=== PATIENT | female | born 1990 | race Hispanic/Latino ===

== ENCOUNTER 2017-05-24 08:49 | Emergency (ER) | payer MEDICAID, OTHER ==
[2017-05-24] MEDS ORDERED: LIDOCAINE HCL 1% 20 ML VIAL ONE (09:26)
[2017-05-24] MEDS ORDERED: TETANUS/DIPHTHERIA TOXOID [ADULT] 0.5 ML VIAL IM ONE (09:27)
[2017-05-24] MEDS ORDERED: CEPHALEXIN 500 MG CAPSULE ONE (09:29)
== END 2017-05-24 10:19 | disposition home or self-care (01) ==
LOC: EDH 08:49
DX: S61.412A Laceration without foreign body of left hand, initial encounter (principal); Z72.0 Tobacco use; W22.8XXA Striking against or struck by other objects, initial encounter; Y93.89 Activity, other specified; Y92.89 Other specified places as the place of occurrence of the external cause; Y99.8 Other external cause status
CPT/HCPCS: 12032; 73120; 90471; 90714

== ENCOUNTER 2019-07-16 01:43 | Emergency (ER) | payer OTHER ==
[2019-07-16] MEDS ORDERED: ACETAMINOPHEN EXTRA STRENGTH 500 MG TABLET ONE (01:53)
[2019-07-16] MEDS ORDERED: ONDANSETRON ODT 4 MG TAB ONE (02:10)
[2019-07-16] MEDS ORDERED: IBUPROFEN 200 MG TAB ONE (03:36)
[2019-07-16] MEDS ORDERED: IBUPROFEN 400 MG TABLET ONE (03:36)
== END 2019-07-16 03:42 | disposition home or self-care (01) ==
LOC: EDH 01:43
DX: J11.1 Influenza due to unidentified influenza virus with other respiratory manifestations (principal); R11.2 Nausea with vomiting, unspecified
CPT/HCPCS: 87804; 87880

== ENCOUNTER 2019-11-03 15:28 | Emergency (ER) | payer OTHER ==
[2019-11-03 16:21] LABS: HCG,QUAL RESULT NEGATIVE (NEGATIVE)
[2019-11-03 16:22] LABS: APPEARANCE,URINE Clear (CLEAR); BILIRUBIN,URINE Negative (NEGATIVE); COLOR,URINE Yellow (YELLOW); GLUCOSE, URINE (UA) Negative (NEGATIVE); KETONES,URINE Negative (NEGATIVE); LEUKOCYTE ESTERASE ,URINE Small (NEGATIVE); NITRATE,URINE Negative (NEGATIVE); OCCULT BLOOD,URINE Negative (NEGATIVE); PROTEIN,URINE Negative (NEGATIVE); UROBILINOGEN,URINE 0.2 mg/dL (0.2-1.0)
[2019-11-03 16:41] LABS: BACTERIA,URINE Few /HPF (None Seen); SQUAMOUS EPITHELIAL CELL,UR Few /HPF (0-2)
[2019-11-03 16:45] LABS: BASOPHILS % (AUTO) 0.4 % (0.0-5.0); EOSINOPHILS % (AUTO) 0.8 % (0.0-8.0); HEMATOCRIT 40.4 % (36-48); LYMPHOCYTES % (AUTO) 23.5 % (21.0-51.0); MEAN CORPUSCULAR HEMOGLOBIN 31.1 pg (27.0-33.0); MEAN CORPUSCULAR HGB CONC 33.7 g/dL (32.0-36.0); MEAN CORPUSCULAR VOLUME 92.4 fL (79-99); MONOCYTES % (AUTO) 4.3 % (3.0-13.0); NEUTROPHILS % (AUTO) 70.8 % (40.0-77.0); PLATELET COUNT (AUTO) 287 K/uL (130-400); RED BLOOD CELL COUNT(AUTO) 4.37 MIL/uL (4.00-5.50); RED CELL DISTRIBUTION WIDTH 13.8 % (11.0-15.5); WHITE BLOOD COUNT (AUTO) 8.3 K/uL (4.8-10.8)
[2019-11-03 16:48] LABS: CREATININE 0.9 mg/dL (0.5-1.5); POTASSIUM 3.7 mmol/L (3.5-5.1)
== END 2019-11-03 17:22 | disposition home or self-care (01) ==
LOC: EDH 15:28
DX: R42 Dizziness and giddiness (principal); R11.0 Nausea; Z72.0 Tobacco use
CPT/HCPCS: 36415; 80048; 81001; 81025; 85025; 87088; 93005

== ENCOUNTER 2019-11-11 04:49 | Emergency (ER) | payer OTHER ==
[2019-11-11] MEDS ORDERED: ACETAMINOPHEN EXTRA STRENGTH 500 MG TABLET ONE (05:13)
[2019-11-11] MEDS ORDERED: ONDANSETRON ODT 4 MG TAB ONE (05:14)
== END 2019-11-11 06:17 | disposition home or self-care (01) ==
LOC: EDH 04:49
DX: B34.9 Viral infection, unspecified (principal); Z20.828 Contact with and (suspected) exposure to other viral communicable diseases; Z72.0 Tobacco use
CPT/HCPCS: 36415; 99283; U0003

== ENCOUNTER 2019-11-16 12:23 | Emergency (ER) | payer OTHER ==
[2019-11-16 13:05] LABS: APPEARANCE,URINE Clear (CLEAR); BILIRUBIN,URINE Negative (NEGATIVE); COLOR,URINE Yellow (YELLOW); GLUCOSE, URINE (UA) Negative (NEGATIVE); KETONES,URINE Negative (NEGATIVE); LEUKOCYTE ESTERASE ,URINE Negative (NEGATIVE); NITRATE,URINE Negative (NEGATIVE); OCCULT BLOOD,URINE Negative (NEGATIVE); PH,URINE 7.5 (5.0-8.0); PROTEIN,URINE Negative (NEGATIVE); UROBILINOGEN,URINE 0.2 mg/dL (0.2-1.0)
[2019-11-16 13:16] LABS: HCG,QUAL RESULT POSITIVE (NEGATIVE)
[2019-11-16 13:32] LABS: BASOPHILS % (AUTO) 0.3 % (0.0-5.0); HEMATOCRIT 37.7 % (36-48); LYMPHOCYTES % (AUTO) 16.5 % (21.0-51.0); MEAN CORPUSCULAR HGB CONC 34.5 g/dL (32.0-36.0); MEAN CORPUSCULAR VOLUME 89.8 fL (79-99); MONOCYTES % (AUTO) 8.3 % (3.0-13.0); NEUTROPHILS % (AUTO) 74.6 % (40.0-77.0); PLATELET COUNT (AUTO) 180 K/uL (130-400); RED CELL DISTRIBUTION WIDTH 13.2 % (11.0-15.5)
[2019-11-16] MEDS ORDERED: ONDANSETRON ODT 4 MG TAB ONE (13:36)
[2019-11-16 13:46] LABS: BILIRUBIN,TOTAL 0.1 mg/dL (0.2-1.0); CREATININE 0.9 mg/dL (0.5-1.5); POTASSIUM 3.9 mmol/L (3.5-5.1); TOTAL PROTEIN, SERUM 7.1 g/dL (6.0-8.3)
[2019-11-16 14:20] LABS: EOSINOPHILS % (MANUAL) 1 % (1-6); LYMPHOCYTES % (MANUAL) 10 % (22-44); MAN.DIFF COMMENT-IMPRESSION MANUAL DIFFERENTIAL; MONOCYTES % (MANUAL) 2 % (2-9); PLATELET MORPHOLOGY COMMENT ADEQUATE; SEGMENTED NEUTROPHILS % 87 % (40-70)
== END 2019-11-16 15:51 | disposition home or self-care (01) ==
LOC: EDH 12:23
DX: O98.511 Other viral diseases complicating pregnancy, first trimester (principal); O99.511 Diseases of the respiratory system complicating pregnancy, first trimester; U07.1 COVID-19; J12.89 Other viral pneumonia; O21.9 Vomiting of pregnancy, unspecified; Z3A.01 Less than 8 weeks gestation of pregnancy; Z72.0 Tobacco use
CPT/HCPCS: 36415; 80053; 81003; 81025; 82728; 85025; 85378; 86140; 93005

== ENCOUNTER 2020-04-25 08:43 | Emergency (ER) | payer MEDICAID, OTHER | END 2020-04-25 09:02 | LOC: EEVIPCON 08:43 → EDH 08:43 | DX: Z02.83 Encounter for blood-alcohol and blood-drug test (principal) | CPT/HCPCS: 36415 ==

== ENCOUNTER 2020-06-30 05:06 | Emergency (ER) | payer MEDICAID ==
[2020-06-30] MEDS ORDERED: AMOX/CLAV 875/125MG TAB PO ONE (05:58)
[2020-06-30] MEDS ORDERED: IBUPROFEN 600 MG TABLET ONE (05:58)
[2020-06-30] MEDS ORDERED: ACETAMINOPHEN 500 MG TABLET ONE (05:58)
== END 2020-06-30 07:47 | disposition home or self-care (01) ==
LOC: EDH 05:06
DX: K04.7 Periapical abscess without sinus (principal); K05.00 Acute gingivitis, plaque induced; K03.81 Cracked tooth

== ENCOUNTER 2020-10-02 05:50 | Emergency (ER) | payer MEDICAID ==
[2020-10-02 06:17] LABS: APPEARANCE,URINE Clear (CLEAR); BILIRUBIN,URINE Negative (NEGATIVE); COLOR,URINE Yellow (YELLOW); GLUCOSE, URINE (UA) Negative (NEGATIVE); KETONES,URINE Negative (NEGATIVE); LEUKOCYTE ESTERASE ,URINE Small (NEGATIVE); NITRATE,URINE Negative (NEGATIVE); OCCULT BLOOD,URINE Negative (NEGATIVE); PROTEIN,URINE Negative (NEGATIVE); UROBILINOGEN,URINE 0.2 mg/dL (0.2-1.0)
[2020-10-02 06:17] LABS: BASOPHILS % (AUTO) 0.4 % (0.0-5.0); EOSINOPHILS % (AUTO) 2.5 % (0.0-8.0); HEMATOCRIT 35.9 % (36-48); LYMPHOCYTES % (AUTO) 28.9 % (21.0-51.0); MEAN CORPUSCULAR HEMOGLOBIN 30.1 pg (27.0-33.0); MEAN CORPUSCULAR HGB CONC 34.3 g/dL (32.0-36.0); MONOCYTES % (AUTO) 6.4 % (3.0-13.0); NEUTROPHILS % (AUTO) 61.7 % (40.0-77.0); PLATELET COUNT (AUTO) 267 K/uL (130-400); RED BLOOD CELL COUNT(AUTO) 4.08 MIL/uL (4.00-5.50); RED CELL DISTRIBUTION WIDTH 13.3 % (11.0-15.5); WHITE BLOOD COUNT (AUTO) 7.6 K/uL (4.8-10.8)
[2020-10-02 06:24] LABS: AMPHET/METH SCREEN,URINE NEGATIVE (NEGATIVE); BARBITURATE SCREEN, URINE NEGATIVE (NEGATIVE); BENZODIAZEPINES SCREEN,URINE NEGATIVE (NEGATIVE); CANNABINOID SCREEN,URINE NEGATIVE (NEGATIVE); COCAINE SCREEN,URINE NEGATIVE (NEGATIVE); OPIATE SCREEN,URINE NEGATIVE (NEGATIVE); PHENCYCLIDINE SCREEN,URINE NEGATIVE (NEGATIVE)
[2020-10-02 06:30] LABS: ALBUMIN 2.9 g/dL (3.5-5.0); BILIRUBIN,TOTAL 0.2 mg/dL (0.2-1.0); CREATININE 0.5 mg/dL (0.5-1.5); POTASSIUM 3.7 mmol/L (3.5-5.1); TOTAL PROTEIN, SERUM 7.2 g/dL (6.0-8.3)
[2020-10-02 06:37] LABS: INR 0.9 (0.85-1.15); PROTHROMBIN TIME 9.9 SEC (9.6-11.6)
[2020-10-02 06:38] LABS: PARTIAL THROMBOPLASTIN TIME 26.2 SEC (26.3-35.5)
[2020-10-02] MEDS ORDERED: SODIUM CHLORIDE 0.9% 1000ML 1,000 ML IV ONE (07:08)
[2020-10-02 07:54] LABS: BACTERIA,URINE Rare /HPF (None Seen); RBC,URINE 0-1 /HPF (0-1); SQUAMOUS EPITHELIAL CELL,UR Few /HPF (0-2)
== END 2020-10-02 08:49 | disposition home or self-care (01) ==
LOC: EDH 05:50
DX: E86.0 Dehydration (principal); R53.81 Other malaise; R42 Dizziness and giddiness
CPT/HCPCS: 36415; 80053; 80305; 81001; 84484; 85025; 85610; 85730; 93005; 96361; 96374; 99284; J2405; J7030

== ENCOUNTER 2021-09-14 00:05 | Emergency (ER) | payer MEDICAID ==
[~2021-09-14] VITALS: Ht 162.6 cm; Wt 77.1 kg
[2021-09-14] MEDS ORDERED: ONDANSETRON ODT 4MG TAB SL ONE (02:00)
[2021-09-14 02:31] LABS: APPEARANCE,URINE Cloudy (CLEAR); BILIRUBIN,URINE Negative (NEGATIVE); COLOR,URINE Yellow (YELLOW); GLUCOSE, URINE (UA) Negative (NEGATIVE); KETONES,URINE Trace mg/dL (NEGATIVE); LEUKOCYTE ESTERASE ,URINE Moderate (NEGATIVE); NITRATE,URINE Negative (NEGATIVE); OCCULT BLOOD,URINE Negative (NEGATIVE); PROTEIN,URINE Negative (NEGATIVE)
[2021-09-14 02:35] LABS: HCG,QUAL RESULT NEGATIVE (NEGATIVE)
[2021-09-14 02:42] LABS: BACTERIA,URINE Few /HPF (None Seen); RBC,URINE 0-1 /HPF (0-1)
[2021-09-14 02:43] LABS: SQUAMOUS EPITHELIAL CELL,UR Moderate /HPF (0-2)
[2021-09-14] MEDS ORDERED: ONDA4TAB10 PO (03:19)
[2021-09-14 03:23] VITALS: BP 114/57
== END 2021-09-14 03:35 | disposition home or self-care (01) ==
LOC: EDH 00:05
DX: B34.9 Viral infection, unspecified (principal); R11.2 Nausea with vomiting, unspecified
CPT/HCPCS: 81001; 81025; 87088; 87804

== ENCOUNTER 2023-01-15 04:23 | Emergency (ER) | payer MEDICAID ==
[~2023-01-15] VITALS: Ht 162.6 cm; Wt 92.5 kg
[~2023-01-15 04:23] MED LIST: DOXY100C5 PO; IBUP-2070 PO; MICO45CR16 VG; ONDA4TAB10 PO; PHEN-847 PO
[2023-01-15 05:10] VITALS: BP 121/56; PULSE 78; RESP 16; O2SAT 98
== END 2023-01-15 05:20 | disposition home or self-care (01) ==
LOC: EDH 04:23
DX: U07.1 COVID-19 (principal); K04.7 Periapical abscess without sinus; Z79.899 Other long term (current) drug therapy
CPT/HCPCS: 99282

== ENCOUNTER 2023-06-26 11:40 | Emergency (ER) | payer MEDICAID, OTHER ==
[~2023-06-26] VITALS: Ht 162.6 cm; Wt 86.6 kg
[~2023-06-26 11:40] MED LIST changes: +ERYT1OIN7 OP
[2023-06-26 11:42] VITALS: BP 124/69; PULSE 78; RESP 16
[2023-06-26 12:11] LABS: BASOPHILS # (AUTO) 0.04 K/uL (0.00-0.20); BASOPHILS % (AUTO) 0.5 % (0.0-5.0); EOSINOPHILS # (AUTO) 0.26 K/uL (0.00-0.70); HEMATOCRIT 42.5 % (36-48); IMMATURE GRANULOCYTE ABSOLUTE 0.02 K/uL (0-1); LYMPHOCYTES # (AUTO) 2.8 K/uL (1.0-4.8); LYMPHOCYTES % (AUTO) 32.8 % (21.0-51.0); MEAN CORPUSCULAR HEMOGLOBIN 30.6 pg (27.0-33.0); MEAN CORPUSCULAR HGB CONC 33.9 g/dL (32.0-36.0); MEAN CORPUSCULAR VOLUME 90.2 fL (79-99); MONOCYTES # (AUTO) 0.4 K/uL (0.1-1.0); MONOCYTES % (AUTO) 4.8 % (3.0-13.0); NEUTROPHILS % (AUTO) 58.7 % (40.0-77.0); PLATELET COUNT (AUTO) 338 K/uL (130-400); RED BLOOD CELL COUNT(AUTO) 4.71 MIL/uL (4.00-5.50); WHITE BLOOD COUNT (AUTO) 8.6 K/uL (4.8-10.8)
[2023-06-26 12:15] LABS: APPEARANCE,URINE CLEAR (CLEAR); BILIRUBIN,URINE NEGATIVE (NEGATIVE); COLOR,URINE COLORLESS (YELLOW); GLUCOSE, URINE (UA) NEGATIVE (NEGATIVE); KETONES,URINE NEGATIVE (NEGATIVE); LEUKOCYTE ESTERASE ,URINE NEGATIVE Leu/uL (NEGATIVE); NITRATE,URINE NEGATIVE (NEGATIVE); OCCULT BLOOD,URINE NEGATIVE (NEGATIVE); PROTEIN,URINE NEGATIVE (NEGATIVE); UROBILINOGEN,URINE 0.2 mg/dL (0.2-1.0)
[2023-06-26 12:19] LABS: CREATININE 0.7 mg/dL (0.5-1.5); POTASSIUM 3.9 mmol/L (3.5-5.1)
[2023-06-26 12:21] LABS: ADD UA MICROSCOPIC NO
[2023-06-26 12:23] LABS: ALBUMIN 3.7 g/dL (3.5-5.0); BILIRUBIN,TOTAL 0.4 mg/dL (0.2-1.0); TOTAL PROTEIN, SERUM 7.9 g/dL (6.0-8.3)
[2023-06-26 12:35] LABS: B-TYPE NATRIURETIC PEPTIDE < 5 pg/mL (0-100)
== END 2023-06-26 14:45 | disposition left against medical advice (07) ==
LOC: EDH 11:40
DX: R07.89 Other chest pain (principal); R06.2 Wheezing; Z79.899 Other long term (current) drug therapy
CPT/HCPCS: 36415; 71045; 80053; 81003; 82550; 83880; 84484; 85025; 85378; 93005

== ENCOUNTER 2023-09-03 12:04 | Emergency (ER) | payer MEDICAID, OTHER ==
[~2023-09-03] VITALS: Ht 162.6 cm; Wt 81.6 kg
[2023-09-03 13:04] LABS: HCG,QUALITATIVE URINE NEGATIVE (NEGATIVE)
[2023-09-03 13:11] LABS: APPEARANCE,URINE CLEAR (CLEAR); BILIRUBIN,URINE NEGATIVE (NEGATIVE); COLOR,URINE COLORLESS (YELLOW); GLUCOSE, URINE (UA) NEGATIVE (NEGATIVE); KETONES,URINE NEGATIVE (NEGATIVE); LEUKOCYTE ESTERASE ,URINE 25 Leu/uL (NEGATIVE); NITRATE,URINE NEGATIVE (NEGATIVE); OCCULT BLOOD,URINE NEGATIVE (NEGATIVE); PH,URINE 7.5 (5.0-8.0); PROTEIN,URINE NEGATIVE (NEGATIVE); UROBILINOGEN,URINE 0.2 mg/dL (0.2-1.0)
[2023-09-03 13:13] LABS: ADD UA MICROSCOPIC YES
[2023-09-03 13:14] LABS: MUCUS,URINE RARE LPF (None Seen); RBC,URINE 0-1 /HPF (0-1); SQUAMOUS EPITHELIAL CELL,UR FEW /HPF (0-2)
[2023-09-03 13:20] LABS: BASOPHILS # (AUTO) 0.02 K/uL (0.00-0.20); BASOPHILS % (AUTO) 0.2 % (0.0-5.0); EOSINOPHILS # (AUTO) 0.12 K/uL (0.00-0.70); EOSINOPHILS % (AUTO) 1.5 % (0.0-8.0); HEMATOCRIT 42.8 % (36-48); IMMATURE GRANULOCYTE ABSOLUTE 0.02 K/uL (0-1); LYMPHOCYTES % (AUTO) 24.3 % (21.0-51.0); MEAN CORPUSCULAR HEMOGLOBIN 30.4 pg (27.0-33.0); MEAN CORPUSCULAR HGB CONC 33.9 g/dL (32.0-36.0); MEAN CORPUSCULAR VOLUME 89.7 fL (79-99); MONOCYTES # (AUTO) 0.3 K/uL (0.1-1.0); MONOCYTES % (AUTO) 3.7 % (3.0-13.0); NEUTROPHILS # (AUTO) 5.6 K/uL (1.8-7.7); NEUTROPHILS % (AUTO) 70.1 % (40.0-77.0); PLATELET COUNT (AUTO) 285 K/uL (130-400); RED BLOOD CELL COUNT(AUTO) 4.77 MIL/uL (4.00-5.50); RED CELL DISTRIBUTION WIDTH 13.1 % (11.0-15.5); WHITE BLOOD COUNT (AUTO) 8.1 K/uL (4.8-10.8)
[2023-09-03] MEDS: 0.9%NACL 1000ML 1,000 ML IV ONE (13:20)
[2023-09-03 13:28] LABS: CREATININE 0.7 mg/dL (0.5-1.0); POTASSIUM 3.7 mmol/L (3.5-5.1)
[2023-09-03 13:32] LABS: ALBUMIN 3.7 g/dL (3.5-5.0); BILIRUBIN,TOTAL 0.2 mg/dL (0.2-1.0); TOTAL PROTEIN, SERUM 7.9 g/dL (6.0-8.3)
[2023-09-03 14:29] VITALS: BP 131/76; PULSE 76; RESP 18; O2SAT 100
== END 2023-09-03 14:56 | disposition home or self-care (01) ==
LOC: EDH 12:04
DX: T50.905A Adverse effect of unspecified drugs, medicaments and biological substances, initial encounter (principal); R42 Dizziness and giddiness; R35.0 Frequency of micturition; Y92.89 Other specified places as the place of occurrence of the external cause
CPT/HCPCS: 99283; 96360; 80053; 83690; 85025; 82948; 81001; 81025; 36415; J7030

== ENCOUNTER 2023-11-26 04:22 | Emergency (ER) | payer MEDICAID ==
[~2023-11-26] VITALS: Ht 162.6 cm; Wt 81.6 kg
[~2023-11-26 04:22] MED LIST changes: +AMOX1TAB16 PO; +FLUT16H NASAL; +LORA10TA7 PO; +ONDA-243 PO; -ONDA4TAB10 PO
[2023-11-26] MEDS: 0.9%NACL 1000ML 1,000 ML IV ONE (04:49)
[2023-11-26 04:57] LABS: BASOPHILS # (AUTO) 0.04 K/uL (0.00-0.20); BASOPHILS % (AUTO) 0.5 % (0.0-5.0); EOSINOPHILS # (AUTO) 0.16 K/uL (0.00-0.70); EOSINOPHILS % (AUTO) 1.8 % (0.0-8.0); HEMATOCRIT 39.1 % (36-48); IMMATURE GRANULOCYTE ABSOLUTE 0.03 K/uL (0-1); LYMPHOCYTES # (AUTO) 3.1 K/uL (1.0-4.8); LYMPHOCYTES % (AUTO) 35.3 % (21.0-51.0); MEAN CORPUSCULAR HEMOGLOBIN 30.3 pg (27.0-33.0); MEAN CORPUSCULAR VOLUME 89.1 fL (79-99); MONOCYTES # (AUTO) 0.6 K/uL (0.1-1.0); MONOCYTES % (AUTO) 7.2 % (3.0-13.0); NEUTROPHILS # (AUTO) 4.8 K/uL (1.8-7.7); NEUTROPHILS % (AUTO) 54.9 % (40.0-77.0); PLATELET COUNT (AUTO) 301 K/uL (130-400); RED BLOOD CELL COUNT(AUTO) 4.39 MIL/uL (4.00-5.50); RED CELL DISTRIBUTION WIDTH 13.3 % (11.0-15.5); WHITE BLOOD COUNT (AUTO) 8.8 K/uL (4.8-10.8)
[2023-11-26 05:12] LABS: CREATININE 0.7 mg/dL (0.5-1.0)
[2023-11-26 05:17] LABS: ALBUMIN 3.5 g/dL (3.5-5.0); BILIRUBIN,TOTAL 0.3 mg/dL (0.2-1.0); TOTAL PROTEIN, SERUM 7.6 g/dL (6.0-8.3)
[2023-11-26 05:52] VITALS: BP 107/61; PULSE 62; RESP 18; O2SAT 99
== END 2023-11-26 06:00 | disposition home or self-care (01) ==
LOC: EDH 04:22
DX: T67.5XXA Heat exhaustion, unspecified, initial encounter (principal); R42 Dizziness and giddiness; R19.7 Diarrhea, unspecified; X58.XXXA Exposure to other specified factors, initial encounter; Y93.89 Activity, other specified; Y92.89 Other specified places as the place of occurrence of the external cause; Y99.8 Other external cause status
CPT/HCPCS: 99284; 96360; 82550; 84484; 80053; 84703; 85025; 36415; 93005; J7030

== ENCOUNTER 2024-12-29 19:42 | Emergency (ER) | payer SELFPAY ==
[~2024-12-29] VITALS: Ht 162.6 cm; Wt 88.5 kg
[~2024-12-29 19:42] MED LIST changes: +IBUP-1492 PO; -IBUP-2070 PO
--- NOTE | 2024-12-29 20:21 | EKG ---
[facility] Test Date: 2024-12-29 Test Time: 20:17:04 Pat Name: LETICIA URENA Department: [facility] Room: Gender: F [employer]inder: [id number] : 1990 Requested By: LEONEL VARGAS Order Number: [id number] Reading MD: Nimesh Bey Measurements Intervals Declo Rate: 64 P: 60 SC: 171 QRS: 76 QRSD: 83 T: 43 QT: 385 QTc: 399 Interpretive Statements Sinus rhythm Compared to ECG 11/26/2023 04:58:46 No significant changes Electronically Signed On 12-30-2024 15:01:44 CDT by Nimesh Bey Please click the below link to view image of tracing.
[2024-12-29 20:35] LABS: IMMATURE GRANULOCYTE ABSOLUTE 0.02 K/uL (0-1); NUCLEATED RED BLOOD CELLS 0.0 % (0.0-0.19); PLATELET COUNT (AUTO) 297 K/uL (130-400); RED BLOOD CELL COUNT(AUTO) 4.36 MIL/uL (4.00-5.50); RED CELL DISTRIBUTION WIDTH 13.3 % (11.0-15.5); WHITE BLOOD COUNT (AUTO) 7.3 K/uL (4.8-10.8)
[2024-12-29] MEDS: 0.9%NACL 1000ML 1,000 ML IV ONE (20:35)
[2024-12-29 20:45] LABS: CREATININE 0.8 mg/dL (0.5-1.0); GLOMERULAR FILTR. RATE CALC 98.0 mL/min (>90); GLUCOSE,RANDOM 119.0 mg/dL (70-105); SODIUM SERUM 141.0 mmol/L (136-145); UREA NITROGEN, BLOOD 9.0 mg/dL (7-18)
[2024-12-29 20:54] LABS: COVID19 (SARS ANTIGEN RAPID) PRESUMPTIVE NEGATIVE (NEGATIVE); INFLUENZA TYPE A Negative For Type A (NEGATIVE); INFLUENZA TYPE B Negative For Type B (NEGATIVE)
[2024-12-29 20:58] LABS: CREATINE KINASE, TOTAL 258.0 U/L (21-232)
[2024-12-29 21:25] LABS: RAPID GROUP A STREP positive (NEGATIVE)
[2024-12-29] MEDS ORDERED: PENI500T2 PO (22:13)
--- NOTE | 2024-12-29 22:13 | ERN ---
ED Note History of Present Illness Stated Complaint: C/O DIZZINESS WITH BLURRY VISION ONSET 1 HR IMPROVEMENT LEAD Chief Complaint: Blurred/Double Vision Time Seen by MD: 20:01 Time Seen by Midlevel: 20:01 Dictation: The patient is a 34-year-old female with no past medical history who presents to the emergency department with complaints of dizziness, blurry vision, frontal headache onset 6:00 p.m.. Patient denies any falls or traumas. Denies any nausea or vomiting. Patient reports that she has been working outside today. Allergies: Coded Allergies: No Known Drug Allergies (Unverified Allergy, Unknown, 11/11/19) Home Meds Active Scripts Loratadine (Loratadine) 10 Mg Tablet, 10 MG PO DAILY for 30 Days, #30 TAB Prov:JOSEPH GARDNER MD 11/23/23 Fluticasone Propionate (Flonase Nasal [place]) 50 Mcg/Actuation [place], 50 MCG NASAL BID for 14 Days, #60 SPRAY Prov:JOSEPH GARDNER MD 11/23/23 Amoxicillin/Potassium Clav (Amox Tr-K Clv 875-125 mg Tab) 875 Mg-125 Mg Tablet, 1 EACH PO BID for 7 Days, #14 TAB Prov:JOSEPH GARDNER MD 11/23/23 Erythromycin Base (Erythromycin) 5 Mg/Gram (0.5 %) Oint...g., 1 APPL OP QID for conjunctivitis for 3 Days, #1 0 Refills ophthalmic ointment Prov:EMELY JOHN 02/17/23 Miconazole Nitrate (Miconazole 7) 45 Gm Cream.appl, 1 KIRILL VG DAILY for 7 Days, #7 APPL Prov:OUMAR CARRINGTON 09/20/22 Ibuprofen (Ibuprofen) 600 Mg Tablet, 600 MG PO Q6H PRN for PAIN, #15 TAB Prov:OUMAR CARRINGTON 09/20/22 Phenazopyridine HCl (Pyridium) 200 Mg Tab, 200 MG PO TID for 3 Days, #9 TAB Prov:OUMAR CARRINGTON 09/20/22 Doxycycline Hyclate (Doxycycline Hyclate) 100 Mg Capsule, 100 MG PO BID for 10 Days, #20 CAP Prov:OUMAR CARRINGTON 4/26/23 Ondansetron (Ondansetron Odt) 4 Mg Tab.rapdis, 4 MG PO TIDP PRN for NAUSEA/VOMITING, #12 TAB 0 Refills Prov:REJI MORENO MD 09/14/21 Past Medical History Past Medical History: Other Additional Past Medical Hx: SEASONAL ALLERGIES Surgical History: None Family History: Negative Social History: Negative, Lives with family LMP: Jan 19, 2025 RN Note Reviewed/Agreed w/PFSH: Yes Review of System Dictation Constitutional: Negative for fever,chills, and weight loss Eyes: Negative for injury, pain,redness, and discharge ENT: Negative for injury,pain or swelling Cardiovascular: Negative for chest pain, palpitations, and edema Respiratory: Negative for shortness of breath, cough, and wheezing, Abdomen/GI: Negative for abdominal pain, nausea, vomiting, diarrhea, and constipation Back: Negative for injury and pain : Negative for injury, bleeding and discharge MS/Extremity: Negative for injury and deformity Skin: Negative for rash, and discoloration Neuro: Negative for weakness, numbness, tingling, and seizure positive for headaches, dizziness, blurry vision Psych: Negative for suicide ideation, homicidal ideation, and hallucinations Initial Vital Sign VS Vital Signs Date Time Temp Pulse Resp B/P (MAP) Pulse Ox O2 Delivery O2 Flow Rate FiO2 12/29/24 19:44 98.1 65 18 121/67 99 Room Air 12/29/24 20:01 0 21 Physical Exam Dictation Vital Signs reviewed General Appearance: Alert, oriented x 3, no acute distress, well developed, nourished. Head and Face: non-traumatic. Eyes: PERRL, pink conjunctivas, eyelid no trauma, anterior chamber with arcus senilis. Ears: Pinnas intact and no signs of trauma or erythema ear canals clear and no discharge TM no erythema Nose: No discharge, no bleeding. Oropharynx: Mouth normal, tongue pink. pharynx clear,no erythema, tonsils no exudates, no abscesses noted, mucous membrane moist Neck: Supple, non-tender, no thyromegaly, no masses, no JVD, no bruits Breast:Deferred Chest:No tenderness, no crepitus, no paradoxical movement, no retractions Lungs:Clear, well-ventilated, symmetric, no rales, no wheezing, no rhonchi, no stridor, good breath sounds bilaterally Heart: Regular rate, regular rhythm, no murmur, no gallops Vascular: no peripheral edema, Abdomen: Soft, positive bowel sounds, nondistended, no guarding, nontender, no rebound, no masses no hepatomegaly, no splenomegaly, no Richey's sign, no hernias. Rectal: Deferred Genital: Deferred Neurological: Normal speech, motor function intact, sensory function intact , upper extremities equal in strength, lower extremities equal in strength Musculoskeletal: Neck nontender, full range of motion, back nontender, full range of motion, Extremities: nontender, full range of motion Skin: Color pink, dry, no turgor, no rash, no lacerations, no abrasions, no contusions. Lymphatic: Deferred Results (Laboratory/Radiology) Laboratory/Radiology Laboratory Tests Test 12/29/24 20:26 White Blood Count 7.3 K/uL (4.8-10.8) Red Blood Count 4.36 MIL/uL (4.00-5.50) Hemoglobin 13.3 g/dL (12.0-16.0) Hematocrit 39.4 % (36-48) Mean Corpuscular Volume 90.4 fL (79-99) Mean Corpuscular Hemoglobin 30.5 pg (27.0-33.0) Mean Corpuscular Hemoglobin Concent 33.8 g/dL (32.0-36.0) Red Cell Distribution Width 13.3 % (11.0-15.5) Platelet Count 297 K/uL (130-400) Mean Platelet Volume 9.4 fL (7.5-10.5) Immature Granulocyte % (Auto) 0.3 % (0-1) Neutrophils (%) (Auto) 46.3 % (40.0-77.0) Lymphocytes (%) (Auto) 43.6 % (21.0-51.0) Monocytes (%) (Auto) 6.3 % (3.0-13.0) Eosinophils (%) (Auto) 2.9 % (0.0-8.0) Basophils (%) (Auto) 0.6 % (0.0-5.0) Neutrophils # (Auto) 3.4 K/uL (1.8-7.7) Lymphocytes # (Auto) 3.2 K/uL (1.0-4.8) Monocytes # (Auto) 0.5 K/uL (0.1-1.0) Eosinophils # (Auto) 0.21 K/uL (0.00-0.70) Basophils # (Auto) 0.04 K/uL (0.00-0.20) Absolute Immature Granulocyte (auto 0.02 K/uL (0-1) Nucleated Red Blood Cells 0.0 % (0.0-0.19) Sodium Level 141 mmol/L (136-145) Potassium Level 3.6 mmol/L (3.5-5.1) Chloride Level 104 mmol/L (101-111) Carbon Dioxide Level 28 mmol/L (21-32) Blood Urea Nitrogen 9 mg/dL (7-18) Creatinine 0.8 mg/dL (0.5-1.0) Glomerular Filtration Rate Calc 98 mL/min (>90) Random Glucose 119 mg/dL (70-105) H Total Calcium 9.0 mg/dL (8.5-10.1) Total Creatine Kinase 258 U/L (21-232) #H Troponin I High Sensitivity < 4 ng/L (4-50) L Serum Test, Qualitative NEGATIVE (NEGATIVE) Influenza Type A Antigen Negative For Type A Influenza Type B Antigen Negative For Type B SARS-CoV-2 Antigen (Rapid) PRESUMPTIVE NEGATIVE Group A Streptococcus Rapid positive (NEGATIVE) *A Labs Reviewed?: Yes EKG: (+) rhythm (Sinus rhythm) EKG Comment: Date:12/29/2024 Time:2016 Ventricular rate:64 MS interval:171 QRS duration:83 QT/QTc:385/399 EKG interpretation: Sinus rhythm Reviewed by ED Attending STEMI ED Course ED Course Orders Procedure Category Date Status Time Covid19 (Sars Antigen LAB 12/29/24 Complete Rapid) 20:09 Influenza Type A & B, LAB 12/29/24 Complete Rapid 20:09 Rapid (Group A Strep) LAB 12/29/24 Complete 20:09 Cbc With Differential LAB 12/29/24 Complete 20:10 Chest 1vw RAD 12/29/24 Taken 20:10 12 Lead Ekg Tracing- EKG 12/29/24 Complete Technical 20:10 0.9%Nacl 1000ml (Ns PHA 12/29/24 Complete 1000ml) 20:30 Creatine Kinase, Total LAB 12/29/24 Complete 20:10 Troponin I High LAB 12/29/24 Complete Sensitivity 20:10 Basic Metabolic Panel LAB 12/29/24 Complete 20:10 Acetaminophen 500mg PHA 12/29/24 Complete Tab (Tylenol 500mg T 20:30 Orthostatic Vital CPOE 12/29/24 Transmitted Signs 20:10 Testing, LAB 12/29/24 Complete Serum Hcg 20:10 Current Medications Medications (Trade) Dose Ordered Sig/Sarita Route PRN Reason Start Time Stop Time Status Last Admin Dose Admin Acetaminophen (TYLenol 500MG TAB) 1,000 mg ONCE ONCE PO 12/29/24 20:30 12/29/24 20:31 DC Sodium Chloride 1,000 ml @ 0 mls/hr ONCE ONCE IV 12/29/24 20:30 12/29/24 20:31 DC 12/29/24 20:35 Vital Signs Date Time Temp Pulse Resp B/P (MAP) Pulse Ox O2 Delivery O2 Flow Rate FiO2 12/29/24 20:01 97.7 64 18 111/78 99 Room Air* 0 21 12/29/24 19:44 98.1 65 18 121/67 99 Room Air Medical Decision Making MDM The patient is a 34-year-old female with no past medical history who presents to the emergency department with complaints of dizziness, blurry vision, frontal headache onset 6:00 p.m.. Patient denies any falls or traumas. Denies any nausea or vomiting. Patient reports that she has been working outside today. CBC showed no leukocytosis, no anemia, chemistry showed no electrolyte imbalance, slightly elevated CK level, negative troponin, negative , serology positive for strep A. Patient reports feeling better after IV fluids. Reports that she is no longer having any blurry vision or dizziness. Symptoms have resolved. On physical exam patient continues in no acute distress, nontoxic appearance, stable vital signs, neurologically intact. Patient will be discharged to follow up with PCP. Differential diagnosis: Dehydration, electrolyte imbalance, upper respiratory infection Need for hospitalization: Patient does not meet criteria for hospitalization. There are no social concerns with this patient. DX & DISP Disposition: Discharge Departure Impression: Primary Impression: Mild dehydration Additional Impressions: Dizziness, Strep throat Condition: Stable Scripts Penicillin V Potassium (Penicillin V Potassium) 500 Mg Tablet 1 TAB PO TID for 10 Days, #30 TAB 0 Refills Prov: LEONEL VRAGAS SIGNING AGENT 12/29/24 Additional Instructions: You tested positive for strep. Please take your antibiotics as prescribed. The rest of your labs were unremarkable. Your symptoms probably related to mild dehydration. Please continue oral hydration at home. Follow up with the primary doctor if anything worsens please return to ER. FOLLOW-UP WITH PRIMARY CARE PROVIDER IN 1 TO 2 DAYS. TAKE MEDICATIONS DIRECTED HERE IN THE EMERGENCY ROOM. OKAY TO CONTINUE HOME MEDICATIONS UNLESS OTHERWISE DISCUSSED DURING YOUR VISIT IN THE EMERGENCY ROOM TODAY. RETURN TO YOUR NEAREST EMERGENCY ROOM IF SYMPTOMS WORSEN OR IF THERE IS NO IMPROVEMENT. CALL 911 IF YOU NEED IMMEDIATE ASSISTANCE. TAKE TYLENOL [id number] NEEDED AND IF NO CONTRAINDICATIONS ARE PRESENT. INCREASE ORAL HYDRATION. A WOUND CULTURE OR URINE CULTURE WAS ORDERED HERE IN THE EMERGENCY ROOM DEPARTMENT PLEASE FOLLOW-UP WITH PRIMARY CARE PROVIDER AND ADVISE THEM TO GET REPEAT PORTS FROM OUR FACILITY. IF YOU HAD ANY CANDIDO WRAP/SPLINTS THAT WERE APPLIED HERE, PLEASE DO NOT REMOVE THEM UNTIL YOU SEE YOUR PRIMARY CARE OR SPECIALTY. Referrals: KATHI OLSON (PCP) Time of Disposition: 22:11 I have reviewed the case, and I agree with, Diagnosis and Plan LEONEL VARGAS [facility] Dec 29, 2024 22:13
--- NOTE | 2024-12-29 22:15 | HMCIMG ---
EXAM: CR Chest, 1 View. CLINICAL HISTORY: dizzy COMPARISON: None provided. FINDINGS: LUNGS: The lungs show no infiltrate or other acute finding. PLEURAL SPACES: No pleural effusion or pneumothorax. MEDIASTINUM: Cardiac size and mediastinal contours within normal limits. BONES: No aggressive appearing osseous lesion seen. IMPRESSION: No acute cardiopulmonary pathology is evident. /[place]
[2024-12-29 22:32] VITALS: BP 115/76; PULSE 62; RESP 16; TEMP 97.7; O2SAT 100
== END 2024-12-29 22:35 | disposition home or self-care (01) ==
LOC: EDH 19:42
DX: J02.0 Streptococcal pharyngitis (principal); E86.0 Dehydration; H53.2 Diplopia; R42 Dizziness and giddiness; Z20.822 Contact with and (suspected) exposure to COVID-19; Z79.899 Other long term (current) drug therapy
CPT/HCPCS: 99285; 96360; 71045; 87426; 82550; 84484; 80048; 84703; 85025; 87880; 87804 ×2; 36415; 93005; J7030